=== PATIENT | male | born 2000 | race Caucasian/White ===

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

== ENCOUNTER 2021-03-12 17:46 | Emergency (ER) | payer SELFPAY ==
[~2021-03-12] VITALS: Ht 187.9 cm; Wt 140.6 kg
[~2021-03-12 17:46] MED LIST: AMOX-358 PO
[2021-03-12] MEDS ORDERED: ACETAMINOPHEN 500 MG TAB (TYLENOL) PO STA (18:10)
[2021-03-12] MEDS ORDERED: IBUPROFEN 800 MG (MOTRIN) TAB PO STA (18:10)
[2021-03-12] MEDS ORDERED: PROMETHAZINE/ CODEINE SYRUP 5 ML UDC PO ONE (18:15)
[2021-03-12] MEDS ORDERED: RT-ALBUTEROL HFA 8.5 GM INHALER IH PRN (18:15)
--- NOTE | 2021-03-12 18:27 | ED Cough/URI ---
General Chief Complaint: COVID19 Suspect/Confirmed Stated Complaint: COVID+,BODY PAIN,TROUBLE MOVING,VOMITTING,SOB Nursing Triage Note: Patient reports he has had symptoms of body aches, nausea/vomiting, cough, fever, and shortness of breath for 3 days, states he tested positive for COVID-19 yesterday at the walk-in clinic at [facility]. Source: patient Exam Limitations: no limitations History of Present Illness Date Seen by Provider: Mar 12, 2021 Time Seen by Provider: 18:00 Initial Comments Here with report of body aches, nausea, vomiting, cough, fever and shortness of breath since testing positive for COVID-19 3 days ago. He was apparently started on antibiotics for possible sinus infection at the time. Has no other significant medical history. States he has had Covid previously about a year ago. Apparently he had some vomiting with blood tonight but has not had any since. Reports the cough is really what is bugging him the most. Initial O2 sat on arrival was 96 to 97%. Timing/Duration: getting worse, other (3 days but getting worse today) Severity/Quality: moderate, dry cough, other (Posttussive emesis) Prior Episodes/Possible Cause: occasional episodes Modifying Factors: Improves With Activity; Worse With Coughing; Improves With Rest Associated Symptoms: cough, fever/chills, muscle aches, nasal congestion, shortness of breath, sore throat, wheezing Allergies and Home Medications Allergies Coded Allergies: No Known Drug Allergies (Unverified , 12/23/18) Patient Home Medication List Home Medication List Reviewed: Yes Amoxicillin/Potassium Clav (Augmentin 875-125 Tablet) 1 Each Tablet, 1 EACH PO BID Prescribed by: MARY ELLEN ROWLAND on 10/10/192002 Review of Systems Review of Systems Constitutional: see HPI, chills, fever EENTM: nose congestion, throat pain Respiratory: cough, short of breath Cardiovascular: no symptoms reported Gastrointestinal: No nausea; vomiting Musculoskeletal: joint pain, muscle pain Skin: No lesions, No rash Psychiatric/Neurological: Denies Headache, Denies Weakness Past Xohtzar-Txomyc-Xnvsxi Hx Patient Social History Tobacco Use?: Yes Tobacco type used: Cigarettes Smoking Status: Current Someday Smoker Substance use?: No Alcohol Use?: Yes Alcohol Frequency: Once in a while Pt feels they are or have been: No Seasonal Allergies Seasonal Allergies: No Past Medical History Surgeries: No Respiratory: No Cardiac: No Neurological: Yes Genitourinary: No Gastrointestinal: No Musculoskeletal: No Endocrine: No HEENT: No Cancer: No Psychosocial: No Integumentary: No Family Medical History Reviewed Nursing Family Hx No Pertinent Family Hx Physical Exam Vital Signs - First Documented 03/12/21 18:04 Temp 36.6 Pulse 101 Resp 18 B/P (MAP) 118/68 (85) Pulse Ox 96 O2 Delivery Room Air Capillary Refill : Less Than 3 Seconds Height: '" Weight: lbs. oz. kg; 39.00 BMI Method: General Appearance: WD/WN, no apparent distress HEENT: pharyngeal erythema, other (No obvious blood in the throat or nerves and no active bleeding currently. Throat is moderately erythemic) Neck: full range of motion, supple, normal inspection Respiratory: no accessory muscle use, wheezing, other (Coarse cough with expiratory wheezes) Cardiovascular: no murmur, tachycardia Gastrointestinal: non tender, soft Extremities: normal range of motion, non-tender, normal inspection, other (Normal gait) Neurologic/Psychiatric: no motor/sensory deficits, alert, oriented x 3 Skin: normal color, warm/dry Progress/Results/Core Measures Suspected Sepsis SIRS Temperature: Pulse: 101 Respiratory Rate: 18 Blood Pressure 118 /68 Mean: 85 Results/Orders My Orders Orders - DIANA HAIR MD Promethazine/ Codeine Syrup (Phenergan W (03/12/21 18:15) Chest 1 View Ap/Pa Only (03/12/21 18:10) Acetaminophen Tablet (Tylenol Tablet) (03/12/21 18:10) Ibuprofen Tablet (Motrin Tablet) (03/12/21 18:10) Albuterol Inhaler (Albuterol) (03/12/21 18:15) Medications Given in ED Current Medications Medications Dose Ordered Sig/Jeovanny Route Start Time Stop Time Status Last Admin Dose Admin Albuterol Sulfate 4 PUFFS Q2H PRN IH 03/12/21 18:15 03/12/21 18:19 8.5 GM Promethazine HCl/ Codeine 5 ml ONCE ONCE PO 03/12/21 18:15 03/12/21 18:16 DC 03/12/21 18:19 5 ML Vital Signs/I&O 03/12/21 03/12/21 18:04 18:09 Temp 36.6 Pulse 101 Resp 18 B/P (MAP) 118/68 (85) Pulse Ox 96 O2 Delivery Room Air Room Air Capillary Refill : Less Than 3 Seconds Blood Pressure Mean: 85 Progress Note : Progress Note Seen and evaluated. Chest x-ray ordered. Albuterol inhaler 4 puffs now and go pack given. Tylenol 1 g p.o. and ibuprofen 800 mg p.o. ordered. Phenergan with codeine 5 mL p.o. ordered. Monitor patient. 184: Patient doing better. Chest x-ray shows question of an infiltrate. He is currently on Augmentin which would cover. I did give him return precautions for hemoptysis/hematemesis as well as for Covid. Discharged home with return precautions. Patient verbalized understanding of instructions and agreement with plan. Diagnostic Imaging Diagonstic Imaging: Xray Plain Films/CT/US/NM/MRI: chest Comments [facility]. [place], [place] NAME: JACIN[facility] REC#: [id number] PT STATUS: REG ER : 2000 PHYSICIAN: DIANA HAIR MD ADMIT DATE: 03/12/21/ER FS Draft Date of Exam:03/12/21 CHEST 1 VIEW AP/PA ONLY EXAM: Chest 1 view AP/PA only. INDICATION: Cough. COVID positive. COMPARISON: None. FINDINGS: Normal heart size and central pulmonary vascularity. Small airspace opacity in the left perihilar upper lobe. No pleural effusion or pneumothorax. No acute osseous findings. IMPRESSION: Small airspace opacity in the perihilar left upper lobe could represent early pneumonitis. Dictated on workstation # [id number] Dict: 03/12/211824 Trans: 03/12/211826 [facility] [id number] Interpreted by: BRENDON BERNAL MD Electronically signed by: Departure Impression Primary Impression: COVID-19 virus infection Disposition: 01 HOME, SELF-CARE Condition: Improved Departure-Patient Inst. Decision time for Depature: 18:42 Referrals: NO,LOCAL PHYSICIAN (PCP/Family) Primary Care Physician Patient Instructions: COVID-19 ED, Coughing up Blood, Nausea and Vomiting, Adult (DC) Add. Discharge Instructions: All discharge instructions reviewed with patient and/or family. Voiced understanding. Drink plenty of fluids and get plenty of rest. Monitor your oxygen saturation while resting. Currently it is __96__ percent. If that starts to decline below 90, please return immediately to the emergency department for further evaluation. You may take ibuprofen 600 mg every 8 hours as needed for fever or pain. You may take Tylenol/acetaminophen 1000 mg every 8 hours as needed for fever or pain. Take other medications as prescribed. Return for worse pain, fever, vomiting, weakness, breathing problems, vomiting blood, coughing blood or other concerns as needed. Scripts Promethazine HCl/Codeine (Prometh-Codein 6.25-10 mg/5 ml) 5 Ml Syrup 5 ML PO Q6H PRN for COUGH, #30 ML 0 Refills Prov: DIANA HAIR MD 03/12/21 DIANA HAIR MD Mar 12, 2021 18:27
[2021-03-12] MEDS ORDERED: PROM5SYR PO (18:46)
[2021-03-12 18:54] VITALS: BP 133/79
== END 2021-03-12 18:56 | disposition home or self-care (01) ==
LOC: EDUNIT# 17:46 → ER FS 17:48
DX: U07.1 COVID-19 (principal); F17.210 Nicotine dependence, cigarettes, uncomplicated
CPT/HCPCS: 71045